=== PATIENT | male | born 1950 | race Caucasian/White ===

== ENCOUNTER 2017-01-28 16:38 | Inpatient (IN) | payer MEDICARE, OTHER ==
[~2017-01-28] VITALS: Ht 175.3 cm; Wt 63.6 kg
[~2017-01-28 16:38] MED LIST: ASPI-630 PO; ATOR40TA59 PO; CARV12.52 PO; CEFU500T46 PO; CEPH-264 PO; CEPH500T PO; CIPR500T94 PO; CLOP75TA PO; DOCU-109 PO; FERR-26 PO; INSU100C4 SQ; INSU100I13 SQ; INSU100V13 SQ; INSU100V31 SQ; Insulin; LISI-338 PO; LISI10TA2 PO; LOSA50TA2 PO; Midodrine Hcl PO; NORCO PO; POLY17PO5 PO; SILV400C TP; TORS20TA2 PO; lisinipril PO
[2017-01-28 17:10] VITALS: BP 217/94
[2017-01-28 17:12] VITALS: BP 217/94
[2017-01-28] MEDS ORDERED: DEXTROSE 50% 25 GM / 50ML DISP.SYRIN. IV PRN (17:15)
[2017-01-28] MEDS: IV NORMAL SALINE 1,000ML 1,000 ML IV SCH (17:15)
[2017-01-28] MEDS ORDERED: ONDANSETRON PF 4 MG/2 ML VIAL. IV PRN (17:30)
[2017-01-28] MEDS ORDERED: hydrALAZINE 20 MG/ML VIAL. IV PRN (17:30)
[2017-01-28 17:41] LABS: BASO % 0 % (0-3); EOS % 0 % (0-3); HEMATOCRIT 27.9 % (39.0-53.0); LYMPH # 0.5 x10^3/uL (1.0-4.8); LYMPH % 6 % (24-48); MEAN CORPUSCULAR HEMOGLOBIN 33 pg (25-35); MEAN CORPUSCULAR HGB CONC 36 g/dL (31-37); MEAN CORPUSCULAR VOLUME 93 fL (79-100); MONO # 0.4 x10^3/uL (0.0-1.1); MONO % 5 % (0-9); NEUT # 7.5 x10^3uL (1.8-7.7); NEUT % 89 % (31-73); PLATELET COUNT 145 x10^3/uL (140-400); RED CELL DISTRIBUTION WIDTH 13.2 % (11.5-14.5); WHITE BLOOD COUNT 8.5 x10^3/uL (4.0-11.0)
[2017-01-28 17:58] LABS: ALBUMIN 3.8 g/dL (3.4-5.0); ALBUMIN/GLOBULIN RATIO 1.1 (1.0-1.7); CALCIUM 9.2 mg/dL (8.5-10.1); CREATININE 1.4 mg/dL (0.7-1.3); GFR 50.9; POTASSIUM 4.9 mmol/L (3.5-5.1); TOTAL BILIRUBIN 0.8 mg/dL (0.2-1.0); TOTAL PROTEIN 7.2 g/dL (6.4-8.2)
[2017-01-28 18:11] VITALS: BP 143/64
--- NOTE | 2017-01-28 18:52 | EKG ---
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
[2017-01-28] MEDS ORDERED: CARV12.52 PO (19:35)
[2017-01-28] MEDS ORDERED: LISI10TA2 PO (19:35)
[2017-01-28] MEDS ORDERED: ASPI-612 PO (19:35)
[2017-01-28] MEDS ORDERED: MULT1TAB52 PO (19:35)
[2017-01-28] MEDS ORDERED: TAMS0.4C2 PO (19:35)
[2017-01-28] MEDS ORDERED: INSU100I17 SQ (19:35)
[2017-01-28] MEDS ORDERED: INSU100I13 SQ (19:35)
[2017-01-28] MEDS ORDERED: INSULIN DETEMIR 300 UNITS/3 ML INSULN.PEN. SQ SCH (21:00)
[2017-01-28] MEDS ORDERED: ATORVASTATIN CALCIUM 20 MG TABLET PO SCH (21:00)
[2017-01-28 23:00] VITALS: BP 144/78
[2017-01-29] MEDS ORDERED: ENOXAPARIN 40 MG/0.4 ML DISP.SYRIN. SQ SCH (00:45)
[2017-01-29 02:01] LABS: BACTERIA,URINE FEW /HPF (0-FEW); BILIRUBIN,URINE NEG (NEG); CLARITY,URINE CLEAR; COLOR,URINE YELLOW; GLUCOSE,URINE 100 mg/dL (NEG); NITRITE,URINE NEG (NEG); RBC,URINE 0 /HPF (0-2); SQUAMOUS EPITHELIAL CELL,UR FEW /LPF; UROBILINOGEN,URINE 0.2 mg/dL (0.2 mg/dL); WBC,URINE OCC /HPF (0-4)
[2017-01-29] MEDS: IV NORMAL SALINE 1,000ML 1,000 ML IV SCH (02:58)
[2017-01-29 03:00] VITALS: BP 137/78
[2017-01-29 06:31] LABS: CALCIUM 8.2 mg/dL (8.5-10.1); CREATININE 1.4 mg/dL (0.7-1.3); GFR 50.9; POTASSIUM 3.9 mmol/L (3.5-5.1)
[2017-01-29 06:32] LABS: BASO % 0 % (0-3); EOS # 0.1 x10^3/uL (0.0-0.7); EOS % 1 % (0-3); HEMATOCRIT 23.5 % (39.0-53.0); HEMOGLOBIN 8.4 g/dL (13.0-17.5); LYMPH % 19 % (24-48); MEAN CORPUSCULAR HEMOGLOBIN 33 pg (25-35); MEAN CORPUSCULAR HGB CONC 36 g/dL (31-37); MEAN CORPUSCULAR VOLUME 93 fL (79-100); MONO # 0.5 x10^3/uL (0.0-1.1); MONO % 10 % (0-9); NEUT # 3.9 x10^3uL (1.8-7.7); NEUT % 70 % (31-73); PLATELET COUNT 129 x10^3/uL (140-400); RED BLOOD COUNT 2.53 x10^6/uL (4.30-5.70); RED CELL DISTRIBUTION WIDTH 13.6 % (11.5-14.5); WHITE BLOOD COUNT 5.5 x10^3/uL (4.0-11.0)
[2017-01-29] MEDS ORDERED: INSULIN ASPART 300 UNITS/3 ML INSULN.PEN SQ SCH (07:30)
[2017-01-29 07:43] VITALS: BP 158/73
[2017-01-29] MEDS ORDERED: IV DEXTROSE 5 %-0.45 % NACL 1,000 ML IV SCH (08:15)
[2017-01-29] MEDS ORDERED: ASPIRIN ENTERIC COATED 81 MG TABLET.DR. PO SCH (09:00)
[2017-01-29] MEDS ORDERED: CARVEDILOL 12.5 MG TABLET PO SCH (09:00)
[2017-01-29] MEDS ORDERED: TAMSULOSIN 0.4 MG CAP.ER.24H. PO SCH (09:00)
[2017-01-29] MEDS ORDERED: LISINOPRIL 10 MG TABLET PO SCH (09:00)
[2017-01-29] MEDS ORDERED: MULTIVITAMIN with MINERAL TABLET. PO SCH (09:00)
--- NOTE | 2017-01-29 10:38 | RAD ---
Indication shortness of air. Elevated d-dimer. Frontal and lateral views of the chest were obtained and are compared to an exam 12/07/2014. The heart, pulmonary vessels and mediastinum appear normal. The lungs are clear of acute infiltrates. Significant pleural fluid is not seen. There is no pneumothorax. There are healed right rib fractures. IMPRESSION: No acute or focal process is seen in the chest
--- NOTE | 2017-01-29 10:52 | RAD ---
EXAM: Ventilation/perfusion scintigraphy. HISTORY: Elevated d-dimer. Shortness of breath. COMPARISON: Chest radiograph 01/29/2017. FINDINGS: 22.8 mCi xenon-133 were and halo and ventilation images obtained in anterior and posterior projections. 5.5 mCi technetium 99m MAA was administered intravenously and perfusion images were obtained in multiple projections. Ventilation images demonstrate no ventilation defects. There is a radiotracer retention consistent with chronic obstructive pulmonary disease. Perfusion images demonstrate no focal defects. Nonsegmental mildly decreased perfusion in the apices may reflect chronic obstructive pulmonary disease. IMPRESSION: 1. Low probability for pulmonary embolism. 2. Findings consistent with chronic obstructive pulmonary disease.
[2017-01-29 11:01] VITALS: BP 158/77
[2017-01-29] MEDS ORDERED: PANTOPRAZOLE 40 MG TABLET. PO SCH (11:30)
[2017-01-29] MEDS ORDERED: PANT40TA5 PO (11:32)
[2017-01-29] MEDS ORDERED: HYDR-2867 PO (11:32)
--- NOTE | 2017-01-30 04:39 | DS ---
DATE OF DISCHARGE: 01/29/2017 HOSPITAL COURSE: [id number] gentleman with hypertensive urgency came in through the office where he was then markedly diaphoretic, nausea, weakness, and so forth. The patient has a long history of heart disease with 2 cardiac stents placed and so forth. The patient, as a result of this, was admitted to the hospital. He was having symptoms of headaches, visual changes, and lightheadedness and diaphoresis. He was admitted to the hospital for observation. The patient made good progress. He was given IV hydralazine that brought him down into range. His hemoglobin dropped to 8.4 and 23, white count was 5. The patient's BUN and creatinine are remained off. He had a creatinine of 1.4, given fluids, his blood sugar did drop and was brought back up into range with the use of some D5W, as the patient's D-dimer was elevated but his V/Q scan was negative decreased activity. IMPRESSION: Hypotensive urgency, history of coronary artery disease, hypoglycemia. PLAN: To be discharged home, followed up as an outpatient, make further evaluation on him as indicated. MAGGIE HENSLEY MD DR: SHIRA/ciera JOB#: [id number] / [id number]
== END 2017-01-29 13:20 | disposition home or self-care (01) | DRG 305 ==
LOC: 1 SOUTH 16:38
PROVIDERS: ADMIT Family Medicine; ATTEND Family Medicine
DX: I16.0 Hypertensive urgency (principal); E11.649 Type 2 diabetes mellitus with hypoglycemia without coma; I50.9 Heart failure, unspecified; R71.0 Precipitous drop in hematocrit; E86.0 Dehydration; I11.0 Hypertensive heart disease with heart failure; I25.10 Atherosclerotic heart disease of native coronary artery without angina pectoris; Z95.5 Presence of coronary angioplasty implant and graft
CPT/HCPCS: 36415; 71020; 78582; 80048; 80053; 81001; 82553; 82947; 83605; 84484; 85025; 85379; 93005; 96374; A9540; A9558; J0360; J1650; J1815; J2405; J7030

== ENCOUNTER 2017-05-29 16:17 | Inpatient (IN) | payer MEDICARE, OTHER ==
[~2017-05-29] VITALS: Ht 175.3 cm; Wt 63.1 kg
[~2017-05-29 16:17] MED LIST changes: +ASPI-612 PO; -FERR-26 PO; +FERR325T14 PO; +HYDR-2867 PO; +INSU100I17 SQ; +MULT1TAB52 PO; +PANT40TA5 PO; +TAMS0.4C2 PO
[2017-05-29 16:50] VITALS: BP 198/80
[2017-05-29 16:59] VITALS: BP 198/80
[2017-05-29] MEDS ORDERED: PANT40TA5 PO (17:39)
[2017-05-29] MEDS ORDERED: HYDR-2867 PO (17:39)
[2017-05-29] MEDS ORDERED: CEPH500C PO (17:45)
[2017-05-29] MEDS: IV NORMAL SALINE 1,000ML 1,000 ML IV SCH (18:28)
[2017-05-29 19:08] LABS: ALBUMIN 3.2 g/dL (3.4-5.0); CALCIUM 8.3 mg/dL (8.5-10.1); GFR 33.7; POTASSIUM 4.6 mmol/L (3.5-5.1); TOTAL BILIRUBIN 0.4 mg/dL (0.2-1.0); TOTAL PROTEIN 6.4 g/dL (6.4-8.2)
[2017-05-29 19:34] VITALS: BP 164/66
[2017-05-29] MEDS ORDERED: DEXTROSE 50% 25 GM / 50ML DISP.SYRIN. IV PRN (19:45)
[2017-05-29 20:34] LABS: HEMATOCRIT 27.2 % (39.0-53.0); HEMOGLOBIN 9.6 g/dL (13.0-17.5); MEAN CORPUSCULAR HEMOGLOBIN 33 pg (25-35); MEAN CORPUSCULAR HGB CONC 35 g/dL (31-37); MEAN CORPUSCULAR VOLUME 93 fL (79-100); PLATELET COUNT 82 x10^3/uL (140-400); RED BLOOD COUNT 2.92 x10^6/uL (4.30-5.70); RED CELL DISTRIBUTION WIDTH 13.4 % (11.5-14.5)
[2017-05-29 20:35] LABS: BASO % 0 % (0-3); EOS % 1 % (0-3); LYMPH # 0.5 x10^3/uL (1.0-4.8); LYMPH % 35 % (24-48); MONO # 0.3 x10^3/uL (0.0-1.1); MONO % 21 % (0-9); NEUT # 0.6 x10^3uL (1.8-7.7); NEUT % 43 % (31-73)
[2017-05-29 20:41] LABS: WHITE BLOOD COUNT 1.5 x10^3/uL (4.0-11.0)
[2017-05-29] MEDS: CEPHALEXIN 250 MG CAPSULE PO SCH (21:02)
[2017-05-29] MEDS: LACTOBACILLUS RHAMNOSUS GG 1 CAPSULE. PO SCH (21:02)
[2017-05-29] MEDS: ATORVASTATIN CALCIUM 20 MG TABLET PO SCH (21:02)
[2017-05-29] MEDS: hydrALAZINE 10 MG TABLET PO SCH (21:02)
[2017-05-29] MEDS: INSULIN DETEMIR 300 UNITS/3 ML INSULN.PEN. SQ SCH (21:09)
[2017-05-29] MEDS: INSULIN ASPART 300 UNITS/3 ML INSULN.PEN SQ SCH (21:11)
[2017-05-29 22:06] LABS: % BANDS 2 % (0-9); % EOS 2 % (0-5); % LYMPHS 35 % (24-48); % MONOS 17 % (0-10); % SEGS 44 % (35-66)
[2017-05-29 22:07] LABS: PLT ESTIMATE DECREASED (ADEQUATE)
[2017-05-29] MEDS ORDERED: VANCOMYCIN 1.5 GM in IV NORMAL SALINE 500ML 500 ML IV ONE (23:00)
[2017-05-29 23:06] VITALS: BP 148/73
[2017-05-30 00:23] LABS: BILIRUBIN,URINE NEG (NEG); CLARITY,URINE CLEAR; COLOR,URINE YELLOW; GLUCOSE,URINE 500 mg/dL (NEG)
[2017-05-30 00:24] LABS: BACTERIA,URINE 0 /HPF (0-FEW); NITRITE,URINE NEG (NEG); RBC,URINE 0 /HPF (0-2); SQUAMOUS EPITHELIAL CELL,UR FEW /LPF; UROBILINOGEN,URINE 0.2 mg/dL (0.2 mg/dL); WBC,URINE RARE /HPF (0-4)
[2017-05-30] MEDS: VANCOMYCIN PER PHARMACY MC PRN (01:00)
[2017-05-30 05:06] LABS: BASO % 0 % (0-3); EOS % 2 % (0-3); HEMATOCRIT 25.9 % (39.0-53.0); HEMOGLOBIN 9.1 g/dL (13.0-17.5); LYMPH # 0.6 x10^3/uL (1.0-4.8); LYMPH % 28 % (24-48); MEAN CORPUSCULAR HEMOGLOBIN 33 pg (25-35); MEAN CORPUSCULAR HGB CONC 35 g/dL (31-37); MEAN CORPUSCULAR VOLUME 94 fL (79-100); MONO # 0.3 x10^3/uL (0.0-1.1); MONO % 13 % (0-9); NEUT # 1.2 x10^3uL (1.8-7.7); NEUT % 57 % (31-73); PLATELET COUNT 77 x10^3/uL (140-400); RED BLOOD COUNT 2.77 x10^6/uL (4.30-5.70); RED CELL DISTRIBUTION WIDTH 13.6 % (11.5-14.5); WHITE BLOOD COUNT 2.1 x10^3/uL (4.0-11.0)
[2017-05-30 05:38] VITALS: BP 166/82
[2017-05-30 05:42] LABS: CALCIUM 7.7 mg/dL (8.5-10.1); CREATININE 1.6 mg/dL (0.7-1.3); GFR 43.6; POTASSIUM 4.5 mmol/L (3.5-5.1)
[2017-05-30] MEDS: IV NORMAL SALINE 1,000ML 1,000 ML IV SCH ×2 (06:28→21:29)
[2017-05-30] MEDS: INSULIN ASPART 300 UNITS/3 ML INSULN.PEN SQ SCH ×7 (07:30→21:00)
[2017-05-30] MEDS: LACTOBACILLUS RHAMNOSUS GG 1 CAPSULE. PO SCH ×2 (07:55→21:31)
[2017-05-30] MEDS: CARVEDILOL 12.5 MG TABLET PO SCH (07:56)
[2017-05-30] MEDS: PANTOPRAZOLE 40 MG TABLET. PO SCH (07:56)
[2017-05-30] MEDS: hydrALAZINE 10 MG TABLET PO SCH ×3 (07:56→21:31)
[2017-05-30] MEDS: CEPHALEXIN 250 MG CAPSULE PO SCH ×3 (07:56→21:32)
[2017-05-30] MEDS: MULTIVITAMIN with MINERAL TABLET. PO SCH (07:56)
[2017-05-30] MEDS: TAMSULOSIN 0.4 MG CAP.ER.24H. PO SCH (07:56)
[2017-05-30] MEDS: ASPIRIN ENTERIC COATED 81 MG TABLET.DR. PO SCH (07:56)
[2017-05-30] MEDS: LISINOPRIL 10 MG TABLET PO SCH (07:57)
--- NOTE | 2017-05-30 08:32 | RAD ---
2 view chest 05/29/2017 Clinical indication: Chest pain. Comparison: Chest 01/29/2017. Findings: Cardiac and mediastinal silhouettes are unremarkable. No pleural effusion, pneumothorax or focal consolidation. Multiple old healed posterior right rib fracture deformities. Impression: No acute cardiopulmonary abnormality.
[2017-05-30 08:40] LABS: INFLUENZA A PATIENT NEGATIVE (NEGATIVE); INFLUENZA B PATIENT NEGATIVE (NEGATIVE)
[2017-05-30] MEDS ORDERED: LACTOBACILLUS RHAMNOSUS GG 1 CAPSULE. PO SCH (09:00)
[2017-05-30 11:11] VITALS: BP 162/73
[2017-05-30] MEDS: HEPARIN PF for SUB-Q USE 5,000 UNIT/0.5 ML VIAL. SQ SCH ×2 (14:35→21:39)
[2017-05-30 15:35] VITALS: BP 113/61
[2017-05-30 19:15] VITALS: BP 163/73
[2017-05-30] MEDS: VANCOMYCIN 1 GM in IV NORMAL SALINE 250ML 250 ML IV SCH (21:30)
[2017-05-30] MEDS: ATORVASTATIN CALCIUM 20 MG TABLET PO SCH (21:31)
[2017-05-30] MEDS: INSULIN DETEMIR 300 UNITS/3 ML INSULN.PEN. SQ SCH (21:34)
--- NOTE | 2017-05-30 23:04 | EKG ---
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
[2017-05-30 23:51] VITALS: BP 157/75
[2017-05-31] MEDS: IV NORMAL SALINE 1,000ML 1,000 ML IV SCH ×2 (02:06→13:15)
[2017-05-31] MEDS: HEPARIN PF for SUB-Q USE 5,000 UNIT/0.5 ML VIAL. SQ SCH ×3 (05:28→21:44)
--- NOTE | 2017-05-31 06:15 | EKG ---
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 RI6.01 Compared to ECG 01/28/2017 17:55:21 No significant changes Electronically Signed On 06-04-2017 9:48:05 CONTRACT ANALYST by Moisés Jones
[2017-05-31 06:42] LABS: BASO % 0 % (0-3); EOS % 2 % (0-3); HEMOGLOBIN 8.4 g/dL (13.0-17.5); LYMPH # 0.6 x10^3/uL (1.0-4.8); LYMPH % 44 % (24-48); MEAN CORPUSCULAR HEMOGLOBIN 34 pg (25-35); MEAN CORPUSCULAR HGB CONC 37 g/dL (31-37); MEAN CORPUSCULAR VOLUME 92 fL (79-100); MONO # 0.2 x10^3/uL (0.0-1.1); MONO % 13 % (0-9); NEUT # 0.6 x10^3uL (1.8-7.7); NEUT % 42 % (31-73); PLATELET COUNT 59 x10^3/uL (140-400); RED CELL DISTRIBUTION WIDTH 13.1 % (11.5-14.5)
[2017-05-31 06:49] LABS: WHITE BLOOD COUNT 1.4 x10^3/uL (4.0-11.0)
[2017-05-31] MEDS: INSULIN ASPART 300 UNITS/3 ML INSULN.PEN SQ SCH ×7 (07:30→20:49)
[2017-05-31] MEDS: MULTIVITAMIN with MINERAL TABLET. PO SCH (08:41)
[2017-05-31] MEDS: CEPHALEXIN 250 MG CAPSULE PO SCH ×2 (08:41→14:55)
[2017-05-31] MEDS: PANTOPRAZOLE 40 MG TABLET. PO SCH (08:41)
[2017-05-31] MEDS: LACTOBACILLUS RHAMNOSUS GG 1 CAPSULE. PO SCH ×2 (08:41→19:51)
[2017-05-31] MEDS: ASPIRIN ENTERIC COATED 81 MG TABLET.DR. PO SCH (08:41)
[2017-05-31] MEDS: CARVEDILOL 12.5 MG TABLET PO SCH (08:41)
[2017-05-31] MEDS: TAMSULOSIN 0.4 MG CAP.ER.24H. PO SCH (08:41)
[2017-05-31] MEDS: LISINOPRIL 10 MG TABLET PO SCH (08:42)
[2017-05-31] MEDS: hydrALAZINE 10 MG TABLET PO SCH ×3 (08:42→19:52)
[2017-05-31] MEDS: VANCOMYCIN PER PHARMACY MC PRN (10:24)
[2017-05-31 11:38] VITALS: BP 153/73
--- NOTE | 2017-05-31 11:38 | PN ---
DATE: 05/30/2017 SUBJECTIVE: The patient came in with chest pain and hypotension. The patient is also leukopenic. His white cell count has gone down to 1.5, hemoglobin 9.6. The patient also had increase in his monocytes to 17%. Otherwise, the patient's cardiac enzymes were elevated. Cardiology was consulted. In any case, he is resting comfortably. He denies chest pain, denies abdominal pain presently. PHYSICAL EXAMINATION: GENERAL: Pleasant white male in moderate amount of distress. VITAL SIGNS: Blood pressure 120/70, respiratory rate 20, pulse 70, afebrile, temperature 99.6. HEENT: The patient's head was atraumatic, normocephalic. Eyes: PERRLA without jaundice. Mouth and throat were normal. NECK: Supple, without JVD, carotid bruits. No thyromegaly. LUNGS: Diminished throughout, poor movement of air. CARDIOVASCULAR: Regular sinus rhythm, S1, S2, without murmur, rub, thrill, or extra heart sound. ABDOMEN: Soft, nontender, no rebounding, no guarding. Positive bowel sounds. No hepatosplenomegaly was noted. IMPRESSION: Leukopenia. We will go ahead and continue to monitor the patient accordingly and make further evaluation. We will get Cardiology to review and make further assessment as indicated. MAGGIE HENSLEY MD DR: SHIRA/ciera JOB#: [id number] / [id number]
--- NOTE | 2017-05-31 11:49 | PDOC2 ---
CONSULT Date of Admission DATE: 05/29/17 Reason for Consult: Chest pain Referring Physician: Dr. Solo Chief Complaint Fatigue Source: Patient History of Present Illness The patient is a 66 year old male being treated for a significantly decreased WBC count and is currently on IV antibiotics. We have been asked to see him due to episodes of chest discomfort. The discomfort has been present for greater than a month. The patient denies that it is associated with exertion. It has not been increasing in frequency or intensity. His EKG shows no acute ischemic changes. His troponin x three has no significant elevation (peak of 0.070). He does have a history of a stent placed at [facility] approximately 5 years ago and is followed by their office. Cardiovascular: CAD, HTN, hyperipidemia, Other (coronary stent) Endocrine: Diabetes Past Surgical History: Other (coronary stent) Family History: Hypertension Smoke: No ALCOHOL: none Current Medications Current Medications Sodium Chloride 1,000 ml @ 90 mls/hr Q11H7M IV Last administered on 05/30/17at 21:29; Start 05/29/17 at 16:45 Aspirin (Aspirin Enteric Coated) 81 mg DAILY PO Last administered on 05/31/17at 08:41; Start 05/30/17 at 09:00 Carvedilol (Coreg) 12.5 mg DAILY PO Last administered on 05/31/17at 08:41; Start 05/30/17 at 09:00 Hydralazine HCl (Apresoline) 10 mg TID PO Last administered on 05/31/17at 08:42 ; Start 05/29/17 at 21:00 Insulin Aspart (NovoLOG) 5 units TIDBFRMEAL SQ Last administered on 05/31/17at 08:50; Start 05/30/17 at 07:30 Insulin Detemir (Levemir) 18 units QHS SQ Last administered on 05/30/17at 21:34 ; Start 05/29/17 at 21:00 Lisinopril (Prinivil) 10 mg DAILY PO Last administered on 05/31/17at 08:42; Start 05/30/17 at 09:00 Pantoprazole Sodium (Protonix) 40 mg DAILY PO Last administered on 05/31/17at 08 :41; Start 05/30/17 at 09:00 Tamsulosin HCl (Flomax) 0.4 mg DAILY PO Last administered on 05/31/17at 08:41; Start 05/30/17 at 09:00 Atorvastatin Calcium (Lipitor) 40 mg QHS PO Last administered on 05/30/17at 21: 31; Start 05/29/17 at 21:00 Cephalexin HCl (Keflex) 500 mg TID PO Last administered on 05/31/17at 08:41; Start 05/29/17 at 21:00; Stop 05/31/17 at 20:59 Multivitamins/ Calcium (Thera-M Plus) 1 tab DAILY PO Last administered on at 08:41; Start 05/30/17 at 09:00 Lactobacillus Rhamnosus (Culturelle) 1 cap BID PO Last administered on at 08:41; Start 05/29/17 at 21:00 Insulin Aspart (NovoLOG) 0-7 UNITS TIDACHC SQ Last administered on 05/30/17at 17 :18; Start 05/29/17 at 21:00 Dextrose 12.5 gm PRN Q15MIN PRN IV SEE COMMENTS; Start 05/29/17 at 19:45 Vancomycin HCl (Vanco Per Pharmacy) 1 each PRN DAILY PRN MC SEE COMMENTS Last administered on 05/31/17at 10:24; Start 05/29/17 at 22:15 Levofloxacin/ Dextrose (Levaquin Per Pharmacy) 1 each PRN DAILY PRN MC SEE COMMENTS Last administered on 05/31/17at 10:21; Start 05/29/17 at 22:15 Lactobacillus Rhamnosus (Culturelle) 1 cap BID PO ; Start 05/30/17 at 09:00; Status Cancel Levofloxacin/ Dextrose 100 ml @ 100 mls/hr 1X ONCE IV Last administered on at 23:47; Start 05/29/17 at 23:00; Stop 05/29/17 at 23:59; Status DC Levofloxacin/ Dextrose 50 ml @ 50 mls/hr Q24H IV Last administered on at 23:11; Start 05/30/17 at 23:00 Vancomycin HCl 1.5 gm/Sodium Chloride 500 ml @ 250 mls/hr 1X ONCE IV Last administered on 05/29/17at 23:57; Start 05/29/17 at 23:00; Stop 05/30/17 at 00:59 ; Status DC Vancomycin HCl 1 gm/Sodium Chloride 250 ml @ 250 mls/hr Q24H IV Last administered on 05/30/17at 21:30; Start 05/30/17 at 21:00 Vancomycin HCl (Vancomycin Trough Level) 1 each 1X ONCE MC ; Start 05/31/17 at 20:30; Stop 05/31/17 at 20:31 Heparin Sodium (Porcine) 5,000 unit Q8HRS SQ Last administered on 05/31/17at 05: 28; Start 05/30/17 at 14:00 Active Scripts Active Reported Cephalexin 500 Mg Capsule 500 Mg PO TID 10 Days LAST DOSE GIVEN: DATE: TIME: NEXT DOSE DUE: DATE: TIME: Hydralazine Hcl 10 Mg Tablet 1 Tab PO TID LAST DOSE GIVEN: DATE: TIME: NEXT DOSE DUE: DATE: TIME: Pantoprazole Sodium 40 Mg Tablet.dr 1 Tab PO DAILY LAST DOSE GIVEN: DATE: TIME: NEXT DOSE DUE: DATE: TIME: Novolog Flexpen (Insulin Aspart) 100 Unit/1 Ml Insuln.pen 0-10 Unit SQ TIDBFRMEAL LAST DOSE GIVEN: DATE: TODAY TIME: WITH LUNCH NEXT DOSE DUE: DATE: TODAY TIME: WITH DINNER Lantus Solostar (Insulin Glargine,Hum.rec.anlog) 100 Unit/1 Ml Insuln.pen 18 Unit SQ QHS LAST DOSE GIVEN: DATE: YESTER TIME: AT BEDTIME NEXT DOSE DUE: DATE: TODAY TIME: AT BEDTIME Carvedilol 12.5 Mg Tablet 1 Tab PO DAILY LAST DOSE GIVEN: DATE: TODAY TIME: AM NEXT DOSE DUE: DATE: TOMORROW TIME: AM Aspirin Ec (Aspirin) 81 Mg Tablet.dr 1 Tab PO DAILY LAST DOSE GIVEN: DATE: TODAY TIME: AM NEXT DOSE DUE: DATE: TOMORROW TIME: AM Multivitamins (Multivitamin) 1 Each Tablet 1 Each PO DAILY LAST DOSE GIVEN: DATE: TODAY TIME: AM NEXT DOSE DUE: DATE: TOMORROW TIME: AM Tamsulosin Hcl 0.4 Mg Cap.er.24h 0.4 Mg PO DAILY LAST DOSE GIVEN: DATE: TODAY TIME: AM NEXT DOSE DUE: DATE: TOMORR TIME: AM Lisinopril 10 Mg Tablet 10 Mg PO DAILY LAST DOSE GIVEN: DATE: TODAY TIME: AM NEXT DOSE DUE: DATE: TOMORROW TIME: AM Atorvastatin Calcium 40 Mg Tablet 1 Tab PO DAILY LAST DOSE GIVEN: DATE: TIME: NEXT DOSE DUE: DATE: TIME: Allergies: Coded Allergies: No Known Drug Allergies (Unverified , 07/30/14) General: YES: Fatigue Cardiovascular: yes: Chest Pain, Palpitations General: mild distress HEENT: Atraumatic Lungs: Other (Slightly decreased breath sounds) Abdomen: Normal bowel sounds VITALS Vital Signs Date Time Temp Pulse Resp B/P (MAP) Pulse Ox O2 Delivery O2 Flow Rate FiO2 05/31/17 08:42 69 157/75 05/31/17 08:00 Room Air 05/30/17 23:51 98.5 16 95 Labs Laboratory Tests Test 05/29/17 16:50 05/29/17 18:15 05/29/17 19:00 05/29/17 20:05 Glucose (Fingerstick) 284 mg/dL (70-99) D-Dimer (Paula) < 0.19 mg/L (0.00-0.50) Troponin I Quantitative 0.052 ng/mL (0-0.055) Sodium Level 136 mmol/L (136-145) Potassium Level 4.6 mmol/L (3.5-5.1) Chloride Level 102 mmol/L (98-107) Carbon Dioxide Level 27 mmol/L (21-32) Anion Gap 7 (6-14) Blood Urea Nitrogen 47 mg/dL (8-26) Creatinine 2.0 mg/dL (0.7-1.3) Estimated GFR (Cockcroft-Gault) 33.7 BUN/Creatinine Ratio 24 (6-20) Glucose Level 368 mg/dL (70-99) Calcium Level 8.3 mg/dL (8.5-10.1) Total Bilirubin 0.4 mg/dL (0.2-1.0) Aspartate Amino Transf (AST/SGOT) 36 U/L (15-37) Alanine Aminotransferase (ALT/SGPT) 43 U/L (16-63) Alkaline Phosphatase 72 U/L (46-116) Total Protein 6.4 g/dL (6.4-8.2) Albumin 3.2 g/dL (3.4-5.0) Albumin/Globulin Ratio 1.0 (1.0-1.7) White Blood Count 1.5 x10^3/uL (4.0-11.0) Red Blood Count 2.92 x10^6/uL (4.30-5.70) Hemoglobin 9.6 g/dL (13.0-17.5) Hematocrit 27.2 % (39.0-53.0) Mean Corpuscular Volume 93 fL (79-100) Mean Corpuscular Hemoglobin 33 pg (25-35) Mean Corpuscular Hemoglobin Concent 35 g/dL (31-37) Red Cell Distribution Width 13.4 % (11.5-14.5) Platelet Count 82 x10^3/uL (140-400) Neutrophils (%) (Auto) 43 % (31-73) Lymphocytes (%) (Auto) 35 % (24-48) Monocytes (%) (Auto) 21 % (0-9) Eosinophils (%) (Auto) 1 % (0-3) Basophils (%) (Auto) 0 % (0-3) Neutrophils # (Auto) 0.6 x10^3uL (1.8-7.7) Lymphocytes # (Auto) 0.5 x10^3/uL (1.0-4.8) Monocytes # (Auto) 0.3 x10^3/uL (0.0-1.1) Eosinophils # (Auto) 0.0 x10^3/uL (0.0-0.7) Basophils # (Auto) 0.0 x10^3/uL (0.0-0.2) Segmented Neutrophils % 44 % (35-66) Band Neutrophils % 2 % (0-9) Lymphocytes % 35 % (24-48) Monocytes % 17 % (0-10) Eosinophils % 2 % (0-5) Platelet Estimate Decreased (ADEQUATE) Test 05/29/17 20:32 05/29/17 22:40 05/30/17 04:40 05/30/17 07:44 Glucose (Fingerstick) 303 mg/dL (70-99) 101 mg/dL (70-99) Urine Collection Type Unknown Urine Color Yellow Urine Clarity Clear Urine pH 5.0 Urine Specific [place] 1.020 Urine Protein 100 mg/dl (NEG-TRACE) Urine Glucose (UA) 500 mg/dL (NEG) Urine Ketones (Stick) Neg mg/dL (NEG) Urine Blood Neg (NEG) Urine Nitrite Neg (NEG) Urine Bilirubin Neg (NEG) Urine Urobilinogen Dipstick 0.2 mg/dL (0.2 mg/dL) Urine Leukocyte Esterase Neg (NEG) Urine RBC 0 /HPF (0-2) Urine WBC Rare /HPF (0-4) Urine Squamous Epithelial Cells Few /LPF Urine Bacteria 0 /HPF (0-FEW) Lactic Acid Level 0.8 mmol/L (0.4-2.0) Troponin I Quantitative 0.060 ng/mL (0-0.055) 0.070 ng/mL (0-0.055) White Blood Count 2.1 x10^3/uL (4.0-11.0) Red Blood Count 2.77 x10^6/uL (4.30-5.70) Hemoglobin 9.1 g/dL (13.0-17.5) Hematocrit 25.9 % (39.0-53.0) Mean Corpuscular Volume 94 fL (79-100) Mean Corpuscular Hemoglobin 33 pg (25-35) Mean Corpuscular Hemoglobin Concent 35 g/dL (31-37) Red Cell Distribution Width 13.6 % (11.5-14.5) Platelet Count 77 x10^3/uL (140-400) Neutrophils (%) (Auto) 57 % (31-73) Lymphocytes (%) (Auto) 28 % (24-48) Monocytes (%) (Auto) 13 % (0-9) Eosinophils (%) (Auto) 2 % (0-3) Basophils (%) (Auto) 0 % (0-3) Neutrophils # (Auto) 1.2 x10^3uL (1.8-7.7) Lymphocytes # (Auto) 0.6 x10^3/uL (1.0-4.8) Monocytes # (Auto) 0.3 x10^3/uL (0.0-1.1) Eosinophils # (Auto) 0.0 x10^3/uL (0.0-0.7) Basophils # (Auto) 0.0 x10^3/uL (0.0-0.2) Sodium Level 138 mmol/L (136-145) Potassium Level 4.5 mmol/L (3.5-5.1) Chloride Level 107 mmol/L (98-107) Carbon Dioxide Level 30 mmol/L (21-32) Anion Gap 1 (6-14) Blood Urea Nitrogen 41 mg/dL (8-26) Creatinine 1.6 mg/dL (0.7-1.3) Estimated GFR (Cockcroft-Gault) 43.6 Glucose Level 118 mg/dL (70-99) Calcium Level 7.7 mg/dL (8.5-10.1) Triglycerides Level 71 mg/dL (0-150) Cholesterol Level 70 mg/dL (0-200) LDL Cholesterol, Calculated 30 mg/dL (0-100) VLDL Cholesterol, Calculated 14 mg/dL (0-40) Non-HDL Cholesterol Calculated 44 mg/dL (0-129) HDL Cholesterol 26 mg/dL (40-60) Cholesterol/HDL Ratio 2.0 Test 05/30/17 07:55 05/30/17 11:27 05/30/17 16:36 05/30/17 21:24 Influenza Type A (Rapid) Negative (NEGATIVE) Influenza Type B (Rapid) Negative (NEGATIVE) Glucose (Fingerstick) 148 mg/dL (70-99) 217 mg/dL (70-99) 127 mg/dL (70-99) Test 05/31/17 05:57 05/31/17 07:18 White Blood Count 1.4 x10^3/uL (4.0-11.0) Red Blood Count 2.50 x10^6/uL (4.30-5.70) Hemoglobin 8.4 g/dL (13.0-17.5) Hematocrit 23.0 % (39.0-53.0) Mean Corpuscular Volume 92 fL (79-100) Mean Corpuscular Hemoglobin 34 pg (25-35) Mean Corpuscular Hemoglobin Concent 37 g/dL (31-37) Red Cell Distribution Width 13.1 % (11.5-14.5) Platelet Count 59 x10^3/uL (140-400) Neutrophils (%) (Auto) 42 % (31-73) Lymphocytes (%) (Auto) 44 % (24-48) Monocytes (%) (Auto) 13 % (0-9) Eosinophils (%) (Auto) 2 % (0-3) Basophils (%) (Auto) 0 % (0-3) Neutrophils # (Auto) 0.6 x10^3uL (1.8-7.7) Lymphocytes # (Auto) 0.6 x10^3/uL (1.0-4.8) Monocytes # (Auto) 0.2 x10^3/uL (0.0-1.1) Eosinophils # (Auto) 0.0 x10^3/uL (0.0-0.7) Basophils # (Auto) 0.0 x10^3/uL (0.0-0.2) Glucose (Fingerstick) 112 mg/dL (70-99) Images CXR. No acute changes Assessment/Plan 1. WBC count of 1.4. Ab and treatment as above. 2. CAD with atypical chest pain. No acute EKG changes. No significant elevation in troponin. Agree with present treatment. Probable outpatient MPI as per his primary cardiologists. Will request old records. 3. HTN. Continue present medications and adjust as needed. 4. HLD. Statin. 5. DM As per the primary service. Thank you for allowing us to participate in the care of your patient. Problems: DAREN TRUJILLO MD May 31, 2017 11:49
[2017-05-31 15:52] VITALS: BP 158/69
[2017-05-31] MEDS: ATORVASTATIN CALCIUM 20 MG TABLET PO SCH (19:50)
[2017-05-31 19:56] VITALS: BP 165/69
[2017-05-31 20:54] LABS: VANC TR 9.7 mcg/mL (10.0-20.0)
[2017-05-31] MEDS: VANCOMYCIN 1 GM in IV NORMAL SALINE 250ML 250 ML IV SCH (21:11)
[2017-05-31] MEDS: INSULIN DETEMIR 300 UNITS/3 ML INSULN.PEN. SQ SCH (21:45)
[2017-05-31 22:28] VITALS: BP 138/66
--- NOTE | 2017-06-01 03:58 | PN ---
DATE: 05/31/2017 SUBJECTIVE: A 66-year-old male in with chest pain, generalized weakness. The patient's white count actually went down slightly to 1.4 from 2.1, hemoglobin 8.4 and hematocrit 23. The patient otherwise says he is feeling better. He looks good. No obvious problems. OBJECTIVE: VITAL SIGNS: Blood pressure 153/73, respiration 18, pulse 50, afebrile. LUNGS: Diminished throughout, with poor movement of air. CARDIOVASCULAR: Regular sinus rhythm, S1, S2. ABDOMEN: Soft, nontender. EXTREMITIES: No clubbing, cyanosis, or edema. NEUROLOGIC: Intact. The patient will be monitored carefully, make further evaluation on her as indicated. ABDOMEN: Soft, nontender. EXTREMITIES: No clubbing, cyanosis nor edema. IMPRESSION: Neutropenia, leukopenia, thrombocytopenia, platelets have gone down to 59,000; anemia; chest pain; and hyperglycemia. PLAN: He will continued to be monitored carefully, make further evaluation on him as indicated per those results. MAGGIE HENSLEY MD DR: SHIRA/ciera JOB#: [id number] / [id number]
[2017-06-01] MEDS: IV NORMAL SALINE 1,000ML 1,000 ML IV SCH (04:54)
[2017-06-01] MEDS: HEPARIN PF for SUB-Q USE 5,000 UNIT/0.5 ML VIAL. SQ SCH (05:28)
[2017-06-01 05:59] VITALS: BP 173/83
[2017-06-01] MEDS: INSULIN ASPART 300 UNITS/3 ML INSULN.PEN SQ SCH ×4 (07:30→11:30)
[2017-06-01] MEDS: hydrALAZINE 10 MG TABLET PO SCH ×2 (08:29→14:03)
[2017-06-01] MEDS: CARVEDILOL 12.5 MG TABLET PO SCH (08:29)
[2017-06-01] MEDS: LACTOBACILLUS RHAMNOSUS GG 1 CAPSULE. PO SCH (08:29)
[2017-06-01] MEDS: ASPIRIN ENTERIC COATED 81 MG TABLET.DR. PO SCH (08:29)
[2017-06-01] MEDS: MULTIVITAMIN with MINERAL TABLET. PO SCH (08:29)
[2017-06-01] MEDS: TAMSULOSIN 0.4 MG CAP.ER.24H. PO SCH (08:29)
[2017-06-01] MEDS: LISINOPRIL 10 MG TABLET PO SCH (08:29)
[2017-06-01] MEDS: PANTOPRAZOLE 40 MG TABLET. PO SCH (08:30)
[2017-06-01] MEDS: VANCOMYCIN PER PHARMACY MC PRN (09:04)
[2017-06-01 10:29] LABS: BASO % 0 % (0-3); EOS % 3 % (0-3); HEMATOCRIT 23.9 % (39.0-53.0); HEMOGLOBIN 8.5 g/dL (13.0-17.5); LYMPH # 0.4 x10^3/uL (1.0-4.8); LYMPH % 32 % (24-48); MEAN CORPUSCULAR HEMOGLOBIN 33 pg (25-35); MEAN CORPUSCULAR HGB CONC 35 g/dL (31-37); MEAN CORPUSCULAR VOLUME 93 fL (79-100); MONO # 0.1 x10^3/uL (0.0-1.1); MONO % 10 % (0-9); NEUT # 0.8 x10^3uL (1.8-7.7); NEUT % 56 % (31-73); PLATELET COUNT 57 x10^3/uL (140-400); RED BLOOD COUNT 2.58 x10^6/uL (4.30-5.70); RED CELL DISTRIBUTION WIDTH 13.2 % (11.5-14.5)
[2017-06-01 10:31] LABS: WHITE BLOOD COUNT 1.4 x10^3/uL (4.0-11.0)
[2017-06-01 10:41] LABS: ALBUMIN 2.4 g/dL (3.4-5.0); ALBUMIN/GLOBULIN RATIO 0.8 (1.0-1.7); CALCIUM 7.8 mg/dL (8.5-10.1); CREATININE 1.2 mg/dL (0.7-1.3); GFR 60.8; TOTAL BILIRUBIN 0.2 mg/dL (0.2-1.0); TOTAL PROTEIN 5.3 g/dL (6.4-8.2)
[2017-06-01 11:26] VITALS: BP 164/80
[2017-06-01 11:49] LABS: % SEGS 54 % (35-66)
[2017-06-01 11:50] LABS: % BANDS 3 % (0-9); % BASOS 0 % (0-3); % EOS 2 % (0-5); % LYMPHS 35 % (24-48); % MONOS 6 % (0-10); PLT ESTIMATE DECREASED (ADEQUATE)
[2017-06-01 15:23] VITALS: BP 158/85
--- NOTE | 2017-06-02 00:45 | DS ---
DATE OF DISCHARGE: 06/01/2017 HOSPITAL COURSE: A 66-year-old gentleman. The patient had a nosebleed this morning and has had problems with possibly some anemia in the past. He says he has taken Procrit in the past; however, this is pancytopenia with his neutropenia and thrombocytopenia, so there is something more going on here. In any case, he will be transferred down to [place] for further evaluation by Hematology/Oncology there. PHYSICAL EXAMINATION: VITAL SIGNS: The blood pressure 164/80, respiratory rate 20, pulse 73, afebrile. LUNGS: Diminished, poor movement of air, clear to auscultation. CARDIOVASCULAR: Regular sinus rhythm. ABDOMEN: Soft, nontender. EXTREMITIES: No clubbing, cyanosis and edema. The patient will be transferred down there. IMPRESSION: Pancytopenia, epistaxis. The patient will be monitored carefully. Make further evaluation on him as indicated. Also type 2 diabetes and cjwofpie-df-scjqoa protein malnutrition. MAGGIE HENSLEY MD DR: SHIRA/ciera JOB#: [id number] / [id number]
== END 2017-06-01 17:10 | disposition short-term general hospital (02) | DRG 808 ==
LOC: 1 SOUTH 16:17
PROVIDERS: ADMIT Family Medicine; ATTEND Family Medicine
DX: D61.818 Other pancytopenia (principal); E43 Unspecified severe protein-calorie malnutrition; I95.9 Hypotension, unspecified; I25.10 Atherosclerotic heart disease of native coronary artery without angina pectoris; R04.0 Epistaxis; R07.89 Other chest pain; E11.65 Type 2 diabetes mellitus with hyperglycemia; E78.5 Hyperlipidemia, unspecified; I10 Essential (primary) hypertension; Z82.49 Family history of ischemic heart disease and other diseases of the circulatory system; Z95.5 Presence of coronary angioplasty implant and graft; Z68.20 Body mass index [BMI] 20.0-20.9, adult
CPT/HCPCS: 36415; 71046; 80048; 80053; 80061; 80202; 81001; 82947; 83605; 84484; 85007; 85025; 85379; 85610; 87040; 87086; 87804; 93005; J1815; J1956; J3370; J7040; J7050; J7030

== ENCOUNTER 2018-11-03 15:45 | Emergency (ER) | payer MEDICARE, OTHER ==
[~2018-11-03] VITALS: Ht 175.3 cm; Wt 67.6 kg
[~2018-11-03 15:45] MED LIST changes: -CARV12.52 PO; +CARV12.547 PO; +CEPH500C PO; -LOSA50TA2 PO; +LOSA50TA86 PO
--- NOTE | 2018-11-03 16:13 | PHYS DOC ---
Past History Past Medical History: Angina, Diabetes, Hypertension, Renal Disease, Other Past Surgical History: Other Additional Past Surgical Histo: foot surgery; cardiac stents x3 Smoking: Quit Greater Than 1 Year Alcohol Use: Occasionally Drug Use: None Adult General Chief Complaint Chief Complaint: ABNORMAL LABS HPI HPI Patient is a 67-year-old male presents after being informed of abnormal labs. He had blood work performed this morning at [facility]. He was called and told his potassium is 6. This is going up from his lab draw yesterday when was 5.4. Patient has long-standing history of renal issues. Patient denies any complaints, no chest pain, no shortness of breath. No new leg swelling.[] Review of Systems Review of Systems Constitutional: Denies fever or chills [] Eyes: Denies change in visual acuity, redness, or eye pain [] HENT: Denies nasal congestion or sore throat [] Respiratory: Denies cough or shortness of breath [] Cardiovascular: No chest pain or palpitations[] GI: Denies abdominal pain, nausea, vomiting, bloody stools or diarrhea [] : Denies dysuria or hematuria [] Musculoskeletal: Denies back pain or joint pain [] Integument: Denies rash or skin lesions [] Neurologic: Denies headache, focal weakness or sensory changes [] Endocrine: Denies polyuria or polydipsia [] All other systems were reviewed and found to be within normal limits, except as documented in this note. Allergies Allergies Allergies Coded Allergies Type Severity Reaction Last Updated Verified No Known Drug Allergies 11/03/18 No Physical Exam Physical Exam Constitutional: Well developed, well nourished, no acute distress, non-toxic appearance. [] HENT: Normocephalic, atraumatic, bilateral external ears normal, oropharynx moist, no oral exudates, nose normal. [] Eyes: PERRLA, EOMI, conjunctiva normal, no discharge. [] Neck: Normal range of motion, no tenderness, supple, no stridor. [] Cardiovascular:Heart rate regular rhythm, no murmur [] Lungs & Thorax: Bilateral breath sounds clear to auscultation [] Abdomen: Bowel sounds normal, soft, no tenderness, no masses, no pulsatile masses. [] Skin: Warm, dry, no erythema, no rash. [] Back: No tenderness, no CVA tenderness. [] Extremities: No tenderness, no cyanosis, no clubbing, ROM intact, no edema. [] Neurologic: Alert and oriented X 3, normal motor function, normal sensory function, no focal deficits noted. [] Psychologic: Affect normal, judgement normal, mood normal. [] Current Patient Data Vital Signs Vital Signs Date Time Temp Pulse Resp B/P (MAP) Pulse Ox O2 Delivery O2 Flow Rate FiO2 11/03/18 15:56 98.4 68 12 98 Room Air EKG EKG [] Radiology/Procedures Radiology/Procedures [] Course & Med Decision Making Course & Med Decision Making Pertinent Labs and Imaging studies reviewed. (See chart for details) ED course: Patient arrived, was placed in bed, and tolerated exam well. After the return of his laboratory study, consultation was made with his primary care physician who will follow up with him. Patient was discharged in improved condition with all questions answered. Medical decision making: Patient has mild hyperkalemia at 5.3 which appears to be elevated, is not at a dangerous level in and be followed safely as an ou tpatient at this time. Patient will have close follow-up with his primary care physician.[] Dragon Disclaimer Dragon Disclaimer This electronic medical record was generated, in whole or in part, using a voice recognition dictation system. Departure Departure: Impression: Primary Impression: Hyperkalemia Additional Impression: Chronic kidney disease (CKD) Disposition: 01 HOME, SELF-CARE Condition: IMPROVED Referrals: MAGGIE HENSLEY MD (PCP) Follow-up in 2 days Patient Instructions: Hyperkalemia Additional Instructions: Drink plenty of water. Limit salt and potassium rich foods. Follow-up with your regular doctor in 2 days. Call tomorrow to set the follow-up appointment. Return to the ER if difficulty breathing, or chest pain or palpitations, or any other concerns. Problem Qualifiers Additional Impression: Chronic kidney disease (CKD) Chronic kidney disease stage: unspecified stage Qualified Codes: N18.9 - Chronic kidney disease, unspecified ANNABELLE SORTO DO Nov 03, 2018 16:13
[2018-11-03 16:46] LABS: CALCIUM 9.4 mg/dL (8.5-10.1); GFR 33.6; POTASSIUM 5.3 mmol/L (3.5-5.1)
[2018-11-03 16:57] VITALS: BP 119/63
== END 2018-11-03 16:57 | disposition home or self-care (01) ==
LOC: ER 15:45
DX: E87.5 Hyperkalemia (principal); I12.9 Hypertensive chronic kidney disease with stage 1 through stage 4 chronic kidney disease, or unspecified chronic kidney disease; E11.22 Type 2 diabetes mellitus with diabetic chronic kidney disease; N18.9 Chronic kidney disease, unspecified; Z87.891 Personal history of nicotine dependence
CPT/HCPCS: 36415; 80048; 99284

== ENCOUNTER 2021-07-07 23:15 | Emergency (ER) | payer MEDICARE, OTHER ==
[~2021-07-07] VITALS: Ht 175.3 cm; Wt 67.6 kg
[~2021-07-07 23:15] MED LIST changes: -ASPI-612 PO; +ASPI-889 PO; -LISI-338 PO; +LISI10TA16 PO; -LISI10TA2 PO; +LISI5TAB15 PO; +MULT-445 PO; -MULT1TAB52 PO; -PANT40TA5 PO; +PANT40TA6 PO
--- NOTE | 2021-07-07 23:36 | PHYS DOC ---
Past History Past Medical History: Angina, Diabetes, Hypertension, Renal Disease, Other Past Surgical History: Other Additional Past Surgical Histo: foot surgery; cardiac stents x3 Smoking: Quit Greater Than 1 Year Alcohol Use: Occasionally Drug Use: None General Adult EDM: Chief Complaint: hypoglycemia HPI: HPI: 70-year-old male presents via EMS with hypoglycemia. The patient tells me he took his short acting insulin around 630, 15 units. He had his normal evening meal. He was eating some peanut butter when his left the kitchen. When she came back she found him unconscious and called EMS. EMS found his blood sugar to be 23. They gave the patient caloric agents sugar up to the 170s. The patient woke up and ate a banana. Repeat of his blood sugar showed it was dropping again so they brought him to the emergency room. Patient tells me he feels fine right now. He has not been feeling ill in any way. He states that he did not take his long-acting insulin around bedtime because his blood sugar was low. Review of Systems: Review of Systems: Constitutional: Denies fever or chills. Hypoglycemia Eyes: Denies change in visual acuity HENT: Denies nasal congestion or sore throat Respiratory: Denies cough or shortness of breath Cardiovascular: Denies chest pain or edema GI: Denies abdominal pain, nausea, vomiting, bloody stools or diarrhea : Denies dysuria Musculoskeletal: Denies back pain or joint pain Integument: Denies rash Neurologic: Denies headache, focal weakness or sensory changes Endocrine: Denies polyuria or polydipsia Lymphatic: Denies swollen glands Psychiatric: Denies depression or anxiety Current Medications: Current Meds: Current Medications Medications (Trade) Dose Ordered Sig/[facility] Start Time Stop Time Status Last Admin Dose Admin Dextrose (Dextrose 50%-Water Syringe) 25 gm 1X ONCE 07/07/21 23:45 07/07/21 23:46 Sodium Chloride 1,000 ml @ 1,000 mls/hr 1X ONCE 07/07/21 23:45 07/08/21 00:44 Allergies: Allergies: Allergies Coded Allergies Type Severity Reaction Last Updated Verified No Known Drug Allergies 11/03/18 No Physical Exam: PE: Constitutional: Well developed, well nourished, no acute distress, non-toxic appearance. [] HENT: Normocephalic, atraumatic, bilateral external ears normal, oropharynx moist, no oral exudates, nose normal. [] Eyes: PERRLA, EOMI, conjunctiva normal, no discharge. [] Neck: Normal range of motion, no tenderness, supple, no stridor. [] Cardiovascular: Heart rate regular rhythm, no murmur [] Lungs & Thorax: Bilateral breath sounds clear to auscultation [] Abdomen: Bowel sounds normal, soft, no tenderness, no masses, no pulsatile masses. [] Skin: Warm, dry, no erythema, no rash. [] Back: No tenderness, no CVA tenderness. [] Extremities: No tenderness, no cyanosis, no clubbing, ROM intact, no edema. [] Neurologic: Alert and oriented X 3, normal motor function, normal sensory function, no focal deficits noted. [] Psychologic: Affect normal, judgement normal, mood normal. [] Current Patient Data: Labs: Laboratory Tests Test 07/07/21 23:23 Glucose (Fingerstick) 67 mg/dL (70-99) L EKG: EKG: [] Radiology/Procedures: Radiology/Procedures: [] Heart Score: C/O Chest Pain: N/A Risk Factors: Risk Factors: DM, Current or recent (<one month) smoker, HTN, HLP, family history of CAD, obesity. Risk Scores: Score 0 - 3: 2.5% MACE over next 6 weeks - Discharge Home Score 4 - 6: 20.3% MACE over next 6 weeks - Admit for Clinical Observation Score 7 - 10: 72.7% MACE over next 6 weeks - Early Invasive Strategies Course & Med Decision Making: Course & Med Decision Making Pertinent Labs and Imaging studies reviewed. (See chart for details) Patient was given an amp of D50 on arrival. He is also given a liter of normal saline. His labs are remarkable for mild anemia, and elevated BUN and creatinine. These are similar to previous. His hypoglycemia has stabilized. He is feeling better. He is stable for discharge at this time. [] Dragon Disclaimer: Dragon Disclaimer: This electronic medical record was generated, in whole or in part, using a voice recognition dictation system. Departure Departure: Impression: Primary Impression: Hypoglycemia Disposition: HOME / SELF CARE / HOMELESS Condition: IMPROVED Referrals: MAGGIE HENSLEY MD (PCP) Patient Instructions: Hypoglycemia, [id number] VIANNEY LINN DO Jul 07, 2021 23:36
[2021-07-07] MEDS ORDERED: DEXTROSE 50% 25 GM / 50ML DISP.SYRIN. IV ONE (23:45)
[2021-07-07] MEDS ORDERED: IV NORMAL SALINE 1,000ML 1,000 ML IV ONE (23:45)
[2021-07-07 23:57] LABS: BASO % 0 % (0-3); EOS # 0.2 x10^3/uL (0.0-0.7); EOS % 3 % (0-3); HEMATOCRIT 29.5 % (39.0-53.0); HEMOGLOBIN 10.2 g/dL (13.0-17.5); LYMPH # 0.9 x10^3/uL (1.0-4.8); LYMPH % 16 % (24-48); MEAN CORPUSCULAR HEMOGLOBIN 33 pg (25-35); MEAN CORPUSCULAR HGB CONC 35 g/dL (31-37); MEAN CORPUSCULAR VOLUME 95 fL (79-100); MONO # 0.6 x10^3/uL (0.0-1.1); MONO % 10 % (0-9); NEUT # 3.9 x10^3uL (1.8-7.7); NEUT % 70 % (31-73); PLATELET COUNT 124 x10^3/uL (140-400); RED BLOOD COUNT 3.11 x10^6/uL (4.30-5.70); RED CELL DISTRIBUTION WIDTH 13.5 % (11.5-14.5); WHITE BLOOD COUNT 5.5 x10^3/uL (4.0-11.0)
[2021-07-08 00:05] LABS: CALCIUM 8.5 mg/dL (8.5-10.1); CREATININE 2.5 mg/dL (0.7-1.3); GFR 25.7; POTASSIUM 4.5 mmol/L (3.5-5.1)
[2021-07-08 00:11] LABS: ALBUMIN 3.5 g/dL (3.4-5.0); ALBUMIN/GLOBULIN RATIO 1.4 (1.0-1.7); TOTAL BILIRUBIN 0.4 mg/dL (0.2-1.0)
[2021-07-08 00:46] LABS: BACTERIA,URINE 0 /HPF (0-FEW); CLARITY,URINE CLEAR; COLOR,URINE YELLOW; GLUCOSE,URINE 100 mg/dL (NEG); NITRITE,URINE NEG (NEG); RBC,URINE 0 /HPF (0-2); SQUAMOUS EPITHELIAL CELL,UR OCC /LPF; UROBILINOGEN,URINE 0.2 mg/dL (0.2 mg/dL); WBC,URINE OCC /HPF (0-4)
[2021-07-08 01:15] VITALS: BP 145/63
== END 2021-07-08 01:15 | disposition home or self-care (01) ==
LOC: ER 23:15
DX: E11.649 Type 2 diabetes mellitus with hypoglycemia without coma (principal); I10 Essential (primary) hypertension; Z87.891 Personal history of nicotine dependence
CPT/HCPCS: 36415; 80053; 81001; 82947; 85025; 96361; 96374; 99283; J7030